=== PATIENT | female | born 1975 | race Caucasian/White ===

== ENCOUNTER 2022-07-04 03:28 | Emergency (ER) | payer BC, OTHER ==
[2022-07-04] MEDS ORDERED: GI Cocktail Oral Solution 30 ML PO ONE (03:45)
[2022-07-04] MEDS ORDERED: fentaNYL 50 MCG/ML SDV IVPUSH PRN (03:55)
[2022-07-04 04:18] LABS: CHLORIDE,CL 100 mmol/L (98-107); SODIUM,NA 140 mmol/L (136-145)
[2022-07-04 04:21] LABS: ANION GAP 17.7 mmol/L (5-15); ESTIMATED GFR 80 mL/min (>=60)
[2022-07-04] MEDS ORDERED: Take Home: Acetaminophen/HYDROcodone 325-5 MG, 5 Tab Pack PO ONE (04:30)
== END 2022-07-04 04:43 | disposition home or self-care (01) ==
LOC: VM.ED 03:28
DX: R10.11 Right upper quadrant pain (principal); R10.13 Epigastric pain
CPT/HCPCS: 80053; 81003; 82150; 83690; 85025; 86140; 99284; A9270-GY